=== PATIENT | female | born 1970 | race Caucasian/White ===

== ENCOUNTER 2024-08-16 15:31 | Emergency (ER) | payer BC ==
[2024-08-16] MEDS: Lidocaine 4% Crm 5 Gm with Transparent Dressing Kit TOP ONE (16:30)
[2024-08-16] MEDS: Lidocaine 1% 10 ML MDV INJECT ONE (17:37)
== END 2024-08-16 18:00 | disposition home or self-care (01) ==
LOC: JD.ED 15:31
DX: S61.012A Laceration without foreign body of left thumb without damage to nail, initial encounter (principal); I10 Essential (primary) hypertension; E11.9 Type 2 diabetes mellitus without complications; Z79.899 Other long term (current) drug therapy; Z79.84 Long term (current) use of oral hypoglycemic drugs; Z88.8 Allergy status to other drugs, medicaments and biological substances; W23.1XXA Caught, crushed, jammed, or pinched between stationary objects, initial encounter
CPT/HCPCS: 12001; 99282; A9270; J2003